=== PATIENT | female | born 1945 | race Caucasian/White ===

== ENCOUNTER 2024-07-14 19:49 | Emergency (ER) | payer MEDICARE ==
[2024-07-14] MEDS ORDERED: Sodium Chloride 0.9% 1000 ML 1,000 ML ONE (20:23)
[2024-07-14 20:24] LABS: Absolute Neutrophil Ct (ANC) 2.94 x10^3/uL (1.56-6.13); BASOPHIL % 0.7 % (0.1-1.2); Basophil (Absolute #) 0.04 x10^3/uL (0.01-0.08); Eosinophil % 1.3 % (0.7-5.8); Eosinophil (Absolute #) 0.07 x10^3/uL (0.04-0.36); Hematocrit 41.2 % (34.1-44.9); Hemoglobin 13.7 g/dL (11.2-15.7); IMMATURE GRAN # 0.01 x10^3u/L (0.001-0.031); IMMATURE GRAN % 0.2 % (0.001-0.429); Lymphocytes % 32.5 % (19.3-51.7); Mean Corpuscular Hemoglobin 28.6 pg (25.6-32.2); Mean Corpuscular Hgb Concent. 33.3 g/dL (32.2-35.5); Mean Platelet Volume 10.8 fL (9.4-12.3); Monocyte (Absolute #) 0.67 x10^3/uL (0.24-0.86); Monocytes % 12.1 % (4.7-12.5); Neutrophil % 53.2 % (34.0-71.1); Platelet Count 235 x10^3/uL (182-369); Red Blood Count 4.79 x10^6/uL (3.93-5.22); Red Cell Distribution Width 13.5 % (11.7-14.4); White Blood Count 5.5 x10^3/uL (3.98-10.04)
[2024-07-14] MEDS: Sodium Chloride 0.9% 1000 ML 1,000 ML IV SCH (20:25)
[2024-07-14 20:35] VITALS: TEMP 97
[2024-07-14 20:40] LABS: ALBUMIN 4.5 g/dL (3.5-5.0); ANION GAP 15.1 MEQ/L (5-15); BILIRUBIN,TOTAL 0.8 mg/dL (0.2-1.3); Calcium 9.3 mg/dL (8.4-10.2); Creatinine 1 0.55 mg/dL (0.52-1.04); EST GLOMERULAR FILTRATION RATE 94.4 ML/MIN; Potassium 4.3 mmol/L (3.5-5.1); Total Protein 6.8 g/dL (6.3-8.2)
--- NOTE | 2024-07-14 20:54 | ERPHSYRPT ---
- History of Present Illness Time Seen by Provider: 07/14/24 20:10 Source: patient Exam Limitations: no limitations Patient Subjective Stated Complaint: c/o Triage Nursing Assessment: patient brought to ED by daughter with c/o stroke like symptoms. daughter states that she had a stroke last and now has muscle spasms. patient was at home earlier and walked into the kitchen and started saying things the daughter couldn't understand. Patient is alert and oriented X 3, patient has involuntary facial and arm movements. brought in by wheelchair, hypertensive, placed on 2L of oxygen upon arrival, skin w/n/d Physician History: Patient is a 79-year-old female presents to our ED via private vehicle for evaluation of strokelike symptoms. Patient lives with her daughter. Daughter reports that patient lost her vision at home. Then began to slur her speech. Patient was brought to our ED for evaluation of strokelike symptoms. Daughter reports that patient has had a stroke in the past. 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 Upon arrival to our ED patient was displaying the symptomology. However patient was able to follow commands. Due to patient's condition HPI limited. Portions of this note were created with voice recognition technology. There may be grammatical, spelling, punctuation or sound alike errors Timing/Duration: today Severity: moderate Modifying Factors: Improves With: nothing Associated Symptoms: denies symptoms Allergies/Adverse Reactions: diphenhydramine [From Benadryl] Adverse Reaction (Verified 07/14/24 20:54) phenytoin [From Dilantin] Adverse Reaction (Verified 07/14/24 20:54) Hx Tetanus, Diphtheria Vaccination/Date Given: No (unknown) Hx Influenza Vaccination/Date Given: Yes Hx Pneumococcal Vaccination/Date Given: Yes Travel Risk - International Travel Have you traveled outside of the country in past 3 weeks: No - Emerging Infectious Disease Are you exhibiting symptoms associated with any current EIDs: No - Review of Systems Constitutional: No Symptoms, No Fever, No Chills Eyes: No Symptoms Ears, Nose, & Throat: No Symptoms Respiratory: No Symptoms, No Cough, No Dyspnea Cardiac: No Symptoms, No Chest Pain, No Edema, No Syncope Abdominal/Gastrointestinal: No Symptoms, No Abdominal Pain, No Nausea, No Vomiting, No Diarrhea Genitourinary Symptoms: No Symptoms, No Dysuria Musculoskeletal: No Symptoms, No Back Pain, No Neck Pain Skin: No Symptoms, No Rash Neurological: No Symptoms, No Dizziness, No Focal Weakness, No Sensory Changes Psychological: No Symptoms Endocrine: No Symptoms Hematologic/Lymphatic: No Symptoms Immunological/Allergic: No Symptoms All Other Systems: Reviewed and Negative - Past Medical History Pertinent Past Medical History: Yes Neurological History: Seizures, Stroke ENT History: Cataracts Cardiac History: Hypertension Respiratory History: No Pertinent History Endocrine Medical History: Other Musculoskeletal History: No Pertinent History GI Medical History: Hemorrhoids History: Other Psycho-Social History: No Pertinent History Female Reproductive Disorders: No Pertinent History Other Medical History: constipation, thyroid issues, fracture bones in left foot - Past Surgical History Past Surgical History: Yes Neuro Surgical History: Neurological Surgery Cardiac: No Pertinent History Respiratory: No Pertinent History Gastrointestinal: No Pertinent History Genitourinary: No Pertinent History Musculoskeletal: No Pertinent History Female Surgical History: No Pertinent History - Social History Smoking Status: Former smoker Exposure to second hand smoke: No Drug Use: none - Social Determinants of Health Will the patient participate in the screening: Yes Do you worry about a steady place to live?: No Do you have any problems with any of the following?: No known problems In the past 12 months,have you had to go without utilities?: No Transportation Issues: No Has anyone in your support network made you feel unsafe?: No Have you or anyone in your house had to go w/o enough food: No - Nursing Vital Signs Nursing Vital Signs: Initial Vital Signs Pulse Rate 70 07/14/24 20:03 Respiratory Rate 20 07/14/24 20:03 Blood Pressure 202/99 07/14/24 20:03 O2 Sat by Pulse Oximetry 100 07/14/24 20:03 Pain Scale Pain Intensity 0 - Physical Exam General Appearance: no apparent distress, alert Eye Exam: PERRL/EOMI, eyes nml inspection Ears, Nose, Throat Exam: normal ENT inspection, TMs normal, pharynx normal, moist mucous membranes Neck Exam: normal inspection, non-tender, supple, full range of motion Respiratory Exam: normal breath sounds, lungs clear, airway intact, No respiratory distress Cardiovascular Exam: regular rate/rhythm, normal heart sounds, normal peripheral pulses Gastrointestinal/Abdomen Exam: soft, normal bowel sounds, No tenderness, No mass Back Exam: normal inspection, normal range of motion, No CVA tenderness, No vertebral tenderness Extremity Exam: normal inspection, normal range of motion, pelvis stable, other (Diminished sensation left upper and lower extremity. 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 Grossly nonacute senile brain with small remote infarcts right parietal and left occipital lobes) Ordered Tests: Active Orders 24 hr Category Date Time Status Cafeteria Aide STAT Care 07/14/24 20:12 Active EKG-ER Only STAT Care 07/14/24 20:11 Active IV Insertion STAT Care 07/14/24 20:11 Active Pulse Oximetry (ED) STAT Care 07/14/24 20:11 Active HEAD WITHOUT CONTRAST [CT] Stat Exams 07/14/24 19:50 Taken CBC W DIFF Stat Lab 07/14/24 20:15 Completed CMP Stat Lab 07/14/24 20:15 Completed POCT GLUCOSE Stat Lab 07/14/24 20:12 Completed TROPONIN Q4H Lab 07/14/24 20:15 Completed TROPONIN Q4H Lab 07/15/24 00:15 Ordered TROPONIN Q4H Lab 07/15/24 04:15 Ordered UA W/RFX UR CULTURE Stat Lab 07/14/24 21:02 Completed Medication Summary Generic Name Dose Route Start Last Admin Trade Name Freq PRN Reason Stop Dose Admin Sodium Chloride 1,000 mls @ 100 mls/hr 07/14/24 20:15 07/14/24 22:08 Sodium Chloride 0.9% 1000 Ml IV 08/13/24 20:14 100 mls/hr .Q10H [facility] Infusion Discontinued Medications Generic Name Dose Route Start Last Admin Trade Name Freq PRN Reason Stop Dose Admin Aspirin 162 mg 07/14/24 22:54 07/14/24 23:01 Aspirin 81 Mg Tab.Chew PO 07/14/24 22:55 162 mg STAT ONE Administration Aspirin Confirm 07/14/24 23:00 Aspirin 81 Mg Tab.Chew Administered 07/14/24 23:01 Dose 162 mg .ROUTE .STK-MED ONE Levetiracetam 1,000 mg/ 110 mls @ 220 mls/hr 07/14/24 21:09 07/14/24 22:07 Dextrose IV 07/14/24 21:38 Infused STAT ONE Infusion Dextrose Confirm 07/14/24 21:11 Dextrose 5%/Water Iv Soln. 100ml Plus Bag Administered 07/14/24 21:12 Dose 100 mls @ ud IV .STK-MED ONE Dextrose Confirm 07/14/24 21:14 D5w 100ml Mini Bag 100 Ml Administered 07/14/24 21:15 Dose 100 mls @ ud IV .STK-MED ONE Levetiracetam 1,000 mg/ 110 mls @ 220 mls/hr 07/14/24 22:12 07/14/24 22:24 Dextrose IV 07/14/24 22:41 220 mls/hr STAT ONE 220 mls/hr Administration Dextrose Confirm 07/14/24 22:20 D5w 100ml Mini Bag 100 Ml Administered 07/14/24 22:21 Dose 100 mls @ ud IV .STK-MED ONE Levetiracetam Confirm 07/14/24 21:10 Levetiracetam 500 Mg/5 Ml Vial Administered 07/14/24 21:11 Dose 500 mg .ROUTE .STK-MED ONE Levetiracetam Confirm 07/14/24 21:15 Levetiracetam 500 Mg/5 Ml Vial Administered 07/14/24 21:16 Dose 500 mg .ROUTE .STK-MED ONE Levetiracetam Confirm 07/14/24 22:20 Levetiracetam 500 Mg/5 Ml Vial Administered 07/14/24 22:21 Dose 1,000 mg .ROUTE .STK-MED ONE Lorazepam 3 mg 07/14/24 21:08 07/14/24 21:14 Lorazepam 2 Mg/1 Ml 2 Mg Vial IV 07/14/24 21:09 3 mg STAT ONE Administration Lorazepam Confirm 07/14/24 21:11 Lorazepam 2 Mg/1 Ml 2 Mg Vial Administered 07/14/24 21:12 Dose 4 mg .ROUTE .STK-MED ONE Lab/Rad Data: Laboratory Result Diagrams 07/14/24 20:15 07/14/24 20:15 Laboratory Results 07/14/24 07/14/24 07/14/24 Range/Units 21:02 20:15 20:15 WBC (3.98-10.04) x10^3/uL RBC (3.93-5.22) x10^6/uL Hgb (11.2-15.7) g/dL Hct (34.1-44.9) % MCV (79.4-94.8) fL MCH (25.6-32.2) pg MCHC (32.2-35.5) g/dL RDW (11.7-14.4) % Plt Count (182-369) x10^3/uL MPV (9.4-12.3) fL Gran % (34.0-71.1) % Immature Gran % (Auto) (0.001-0.429) % Nucleat RBC Rel Count (0.00-0.2) % Eos # (Auto) (0.04-0.36) x10^3/uL Immature Gran # (Auto) (0.001-0.031) x10^3u/L Absolute Lymphs (auto) (1.18-3.74) x10^3/uL Absolute Monos (auto) (0.24-0.86) x10^3/uL Absolute Nucleated RBC (0.00-0.012) x10^3u/L Lymphocytes % (19.3-51.7) % Monocytes % (4.7-12.5) % Eosinophils % (0.7-5.8) % Basophils % (0.1-1.2) % Absolute Granulocytes (1.56-6.13) x10^3/uL Basophils # (0.01-0.08) x10^3/uL Sodium 143 (135-145) mmol/L Potassium 4.3 (3.5-5.1) mmol/L Chloride 100 (98-107) mmol/L Carbon Dioxide 32 H (22-30) mmol/L Anion Gap 15.1 H (5-15) MEQ/L BUN 12 (7-17) mg/dL Creatinine 0.55 (0.52-1.04) mg/dL Estimated GFR 94.4 ML/MIN Glucose 86 (74-106) mg/dL POC Glucometer (74 to 106) mg/dL Calcium 9.3 (8.4-10.2) mg/dL Total Bilirubin 0.80 (0.2-1.3) mg/dL AST 34 (14-36) U/L ALT 29 (0-35) U/L Alkaline Phosphatase 54 (38-126) U/L Troponin I < 0.012 (0.000-0.033) ng/mL Serum Total Protein 6.8 (6.3-8.2) g/dL Albumin 4.5 (3.5-5.0) g/dL Urine Color Yellow (Yellow) Urine Appearance Clear (Clear) Urine pH 7.5 (4.6-8.0) Ur Specific [place] <=1.005 (1.005-1.030) Urine Protein Negative (Negative) Urine Glucose (UA) Negative (Negative) mg/dL Urine Ketones Negative (Negative) Urine Blood Negative (Negative) Urine Nitrite Negative (Negative) Urine Bilirubin Negative (Negative) Urine Urobilinogen 0.2 (0.2) mg/dL Ur Leukocyte Esterase Trace A (Negative) U Hyaline Cast (Auto) NONE SEEN (0-2) /LPF Urine Microscopic RBC 0-2 (0-5) /HPF Urine Microscopic WBC 3-5 (0-5) /HPF Ur Epithelial Cells None Seen (None Seen) /HPF Urine Bacteria None Seen (None Seen) /HPF Urine Culture Reflexed NO (NO) 07/14/24 07/14/24 Range/Units 20:15 20:12 WBC 5.5 (3.98-10.04) x10^3/uL RBC 4.79 (3.93-5.22) x10^6/uL Hgb 13.7 (11.2-15.7) g/dL Hct 41.2 (34.1-44.9) % MCV 86.0 (79.4-94.8) fL MCH 28.6 (25.6-32.2) pg MCHC 33.3 (32.2-35.5) g/dL RDW 13.5 (11.7-14.4) % Plt Count 235 (182-369) x10^3/uL MPV 10.8 (9.4-12.3) fL Gran % 53.2 (34.0-71.1) % Immature Gran % (Auto) 0.2 (0.001-0.429) % Nucleat RBC Rel Count 0.0 (0.00-0.2) % Eos # (Auto) 0.07 (0.04-0.36) x10^3/uL Immature Gran # (Auto) 0.01 (0.001-0.031) x10^3u/L Absolute Lymphs (auto) 1.80 (1.18-3.74) x10^3/uL Absolute Monos (auto) 0.67 (0.24-0.86) x10^3/uL Absolute Nucleated RBC 0.00 (0.00-0.012) x10^3u/L Lymphocytes % 32.5 (19.3-51.7) % Monocytes % 12.1 (4.7-12.5) % Eosinophils % 1.3 (0.7-5.8) % Basophils % 0.7 (0.1-1.2) % Absolute Granulocytes 2.94 (1.56-6.13) x10^3/uL Basophils # 0.04 (0.01-0.08) x10^3/uL Sodium (135-145) mmol/L Potassium (3.5-5.1) mmol/L Chloride (98-107) mmol/L Carbon Dioxide (22-30) mmol/L Anion Gap (5-15) MEQ/L BUN (7-17) mg/dL Creatinine (0.52-1.04) mg/dL Estimated GFR ML/MIN Glucose (74-106) mg/dL POC Glucometer 100 (74 to 106) mg/dL Calcium (8.4-10.2) mg/dL Total Bilirubin (0.2-1.3) mg/dL AST (14-36) U/L ALT (0-35) U/L Alkaline Phosphatase (38-126) U/L Troponin I (0.000-0.033) ng/mL Serum Total Protein (6.3-8.2) g/dL Albumin (3.5-5.0) g/dL Urine Color (Yellow) Urine Appearance (Clear) Urine pH (4.6-8.0) Ur Specific [place] (1.005-1.030) Urine Protein (Negative) Urine Glucose (UA) (Negative) mg/dL Urine Ketones (Negative) Urine Blood (Negative) Urine Nitrite (Negative) Urine Bilirubin (Negative) Urine Urobilinogen (0.2) mg/dL Ur Leukocyte Esterase (Negative) U Hyaline Cast (Auto) (0-2) /LPF Urine Microscopic RBC (0-5) /HPF Urine Microscopic WBC (0-5) /HPF Ur Epithelial Cells (None Seen) /HPF Urine Bacteria (None Seen) /HPF Urine Culture Reflexed (NO) - Progress Progress: improved Progress Note: I spoke to neurologist at approximately 9:05 PM. Neurologist believes that patient's twitching is a seizure. Daughter at bedside states that patient has been experiencing this facial twitching since February. Patient was diagnosed with dystonia and has been experiencing these movements since February. Of note patient is following commands. Answering simple questions as well. However per neurologist request we ordered 3 mg of Ativan to be administered at 1 mg intervals. We also ordered 1 g of Keppra 07/14/24 21:11 I spoke with neurologist at approximately 9:28 PM. 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 She advises transfer to an ICU with cont inuous EEG monitoring and neurology services. She also advises that if seizures recur or persist patient can be treated with valproic acid 30 to 40 mg/kg. 07/14/24 21:30 I spoke to neurologist at [facility] who accepts transfer at 10:10 PM. He advised an additional dose of Keppra. 07/14/24 22:12 Plan of care discussed with patient and her daughters. They agree to transfer to [facility] for further evaluation and treatment. Portions of this note were created with voice recognition technology. There may be grammatical, spelling, punctuation or sound alike errors Complexity of problem addresses high. No critical care time. Complex of data reviewed and analyzed is extensive. Test ordered test reviewed results analyzed and correlated clinically with history and physical exam. Management discussed with 2 different neurologist. Risk of complication and or risk of morbidity/mortality of patient management is high. Patient requires transfer to higher level of care. Vital stable. Time spent to transfer patient is approximately 30 minutes. Plan of care established for shared decision making. No social determinants of health present to impede follow-up. Portions of this note were created with voice recognition technology. There may be grammatical, spelling, punctuation or sound alike errors 07/14/24 23:34 Counseled pt/family regarding: diagnosis, need for follow-up, rad results - Departure Departure Disposition: Observation Clinical Impression: Status epilepticus Condition: Stable Critical Care Time: No Referrals: DOCTOR,NO FAMILY [Primary Care Provider] - Follow up/PCP as directed
[2024-07-14 21:10] LABS: Appearance Clear (Clear); Bacteria None Seen /HPF (None Seen); Bilirubin Negative (Negative); Blood Negative (Negative); Epithelial Cells None Seen /HPF (None Seen); Glucose, Urine Negative (Negative); Hyaline Casts NONE SEEN /LPF (0-2); Ketones Negative (Negative); Leukocyte Esterase Trace (Negative); Nitrite Negative (Negative); Ph 7.5 (4.6-8.0); Protein,Urine Dip Negative (Negative); RBC 0-2 /HPF (0-5); Specific Gravity <=1.005 (1.005-1.030); Urobilinogen 0.2 mg/dL (0.2)
[2024-07-14] MEDS ORDERED: Keppra 500 MG/5 ML ONE ×3 (21:10→22:20)
[2024-07-14] MEDS ORDERED: Ativan 2 MG/1 ML VIAL ONE (21:11)
[2024-07-14] MEDS ORDERED: WATER IV ONE (21:11)
[2024-07-14] MEDS ORDERED: DEXTROSE IV ONE (21:11)
[2024-07-14] MEDS ORDERED: D5w 100ML Mini Bag 100 ML 100 ML IV ONE ×2 (21:14→22:20)
[2024-07-14] MEDS: Ativan 2 MG/1 ML VIAL IV ONE (21:14)
[2024-07-14 21:15] VITALS: O2SAT 100
[2024-07-14] MEDS: Keppra 500 MG/5 ML*** 1,000 MG in D5w 100ML Mini Bag 100 ML 100 ML IV ONE ×2 (21:16→22:24)
[2024-07-14] MEDS ORDERED: BABY ASPIRIN 81 MG CHEW ONE (23:00)
[2024-07-14] MEDS: BABY ASPIRIN 81 MG CHEW PO ONE (23:01)
[2024-07-15 00:09] VITALS: PULSE 69; RESP 22
[2024-07-15 00:54] VITALS: BP 112/78
--- NOTE | 2024-07-15 08:45 | XRAY ---
Indication: Weakness. Stroke. Multiple contiguous axial images obtained through the head without contrast. Comparison: None Study is slightly degraded by motion throughout. 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 Age-appropriate global atrophy and mild periventricular degenerative micro-ischemia bilaterally. Small foci remote infarcts anterior/posterior right temporal lobe, left occipital lobe, and both basal ganglia. No gross acute intracranial hemorrhage, abnormal extra-axial fluid collection, or mass effect. Fourth ventricle is midline without hydrocephalus. Bony calvarium intact with incidental bilateral temporal craniotomies. Visualized paranasal sinuses and mastoid air cells are clear. Impression: 1. Minimal motion artifact and beam artifact from aneurysm clips. 2. Atrophy and degenerative micro-ischemia within normal limits. 3. Multifocal small remote infarcts bilaterally as detailed. 4. No gross acute intracranial abnormalities.
== END 2024-07-15 00:43 | disposition short-term general hospital (02) ==
LOC: ED 19:49
DX: G40.901 Epilepsy, unspecified, not intractable, with status epilepticus (principal); R47.81 Slurred speech; I10 Essential (primary) hypertension
CPT/HCPCS: 36415; 70450; 80053; 81001; 82947; 84484; 85025; 93005; 93041; 94760; 96361; 96365; 96366; 96374; 96375; 99285; J1953; J2060; A9270-GY